=== PATIENT | female | born 1980 | race American Indian/Alaskan Native ===

== ENCOUNTER 2017-07-10 09:16 | Emergency (ER) | payer SELFPAY ==
[2017-07-10 09:39] VITALS: BP 173/114
--- NOTE | 2017-07-10 10:11 | XRay Report ---
ROUTINE CHEST, TWO VIEWS: HISTORY: Cough, right rib pain. The trachea, heart, mediastinal contour, lung ortega and bony thorax are unremarkable. IMPRESSION: Unremarkable chest x-ray.
[2017-07-10 10:22] LABS: Basophils % (Auto) 0.5 % (0.0-1.8); Eosinophils # (Auto) 0.3 K/mm3 (0.0-0.4); Hematocrit 39.9 % (30.3-42.9); Hemoglobin 13.3 gm/dl (10.1-14.3); Lymphocytes # (Auto) 2.4 K/mm3 (1.2-5.4); Lymphocytes % (Auto) 37.7 % (13.4-35.0); Mean Corpuscular HGB Conc 33 % (30-34); Mean Corpuscular Hemoglobin 29 pg (28-32); Mean Corpuscular Volume 87 fl (79-97); Monocytes # (Auto) 0.7 K/mm3 (0.0-0.8); Monocytes % (Auto) 11.7 % (0.0-7.3); Platelet Count 260 K/mm3 (140-440); Red Cell Distribution Width 14.9 % (13.2-15.2)
[2017-07-10 10:39] LABS: BUN/Creatinine Ratio 14; Blood Urea Nitrogen 11 mg/dL (7-17); Calcium 8.9 mg/dL (8.4-10.2); Hemolysis Index 6
--- NOTE | 2017-07-10 13:34 | Emergency Department Report ---
- General Chief Complaint: Upper Respiratory Infection Stated Complaint: COUGH Time Seen by Provider: 07/10/17 13:14 Source: patient Mode of arrival: Ambulatory Limitations: No Limitations - History of Present Illness Initial Comments: Patient is a 36-year-old female who is presenting with cough, congestion for approximately 2 weeks. Patient states she's had a productive cough yellow mucus. Patient states that she has had no nausea vomiting but has had shortness of breath with the cough. Patient has not had any relief with over- the-counter meds. Patient denies any current fever But has had chills. Patient does have a history of smoking. The patient states she has some soreness in the right ribs due to excessive coughing. Patient states this is a 8 out 10 in severity. Patient also states that she is not have her blood pressure medicines several weeks. - Related Data Previous Rx's Medication Instructions Recorded Last Taken Type Acetaminophen/Codeine [Tylenol 1 tab PO Q6H PRN #10 tab 01/21/16 Unknown Rx /Codeine # 3 tab] Amoxicillin [Trimox CAP] 500 mg PO Q8H #30 capsule 01/21/16 Unknown Rx Diclofenac Sodium 75 mg PO BID #20 tablet. 01/21/16 Unknown Rx ALBUTEROL Inhaler [ProAir HFA 2 puff IH QID PRN #1 inhalation 07/10/17 Unknown Rx Inhaler] Atenolol [Tenormin] 25 mg PO DAILY #30 tab 07/10/17 Unknown Rx Azithromycin [Zithromax Z-JIGNA] 250 mg PO DAILY #6 tablet 07/10/17 Unknown Rx HYDROcodone/APAP 5-325 [[place] 1 each PO Q6HR PRN #12 tablet 07/10/17 Unknown Rx 5/325] Lisinopril [Zestril] 10 mg PO DAILY #30 tablet 07/10/17 Unknown Rx predniSONE [Deltasone] 10 mg PO QDAY #5 tab 07/10/17 Unknown Rx Allergies Allergy/AdvReac Type Severity Reaction Status Date / Time No Known Allergies Allergy Verified 01/21/16 02:10 ED Review of Systems ROS: Stated complaint: COUGH Other details as noted in HPI Comment: All other systems reviewed and negative ED Past Medical Hx - Past Medical History Previous Medical History?: Yes Hx Hypertension: Yes (took self off meds) - Surgical History Past Surgical History?: No - Social History Smoking Status: Former Smoker Substance Use Type: Alcohol - Medications Home Medications: Home Medications Medication Instructions Recorded Confirmed Last Taken Type Acetaminophen/Codeine [Tylenol 1 tab PO Q6H PRN #10 tab 01/21/16 Unknown Rx /Codeine # 3 tab] Amoxicillin [Trimox CAP] 500 mg PO Q8H #30 capsule 01/21/16 Unknown Rx Diclofenac Sodium 75 mg PO BID #20 tablet.dr 01/21/16 Unknown Rx ALBUTEROL Inhaler [ProAir HFA 2 puff IH QID PRN #1 inhalation 07/10/17 Unknown Rx Inhaler] Atenolol [Tenormin] 25 mg PO DAILY #30 tab 07/10/17 Unknown Rx Azithromycin [Zithromax Z-JIGNA] 250 mg PO DAILY #6 tablet 07/10/17 Unknown Rx HYDROcodone/APAP 5-325 [[place] 1 each PO Q6HR PRN #12 tablet 07/10/17 Unknown Rx 5/325] Lisinopril [Zestril] 10 mg PO DAILY #30 tablet 07/10/17 Unknown Rx predniSONE [Deltasone] 10 mg PO QDAY #5 tab 07/10/17 Unknown Rx ED Physical Exam - General Limitations: No Limitations General appearance: alert, in no apparent distress - Head Head exam: Present: atraumatic, normocephalic - Eye Eye exam: Present: normal appearance - ENT ENT exam: Present: mucous membranes moist - Neck Neck exam: Present: normal inspection - Respiratory Respiratory exam: Present: normal lung sounds bilaterally. Absent: respiratory distress, wheezes, rales, rhonchi - Cardiovascular Cardiovascular Exam: Present: regular rate, normal rhythm. Absent: systolic murmur, diastolic murmur, rubs, gallop - GI/Abdominal GI/Abdominal exam: Present: soft, normal bowel sounds. Absent: distended, tenderness, guarding, rebound - Extremities Exam Extremities exam: Present: normal inspection - Back Exam Back exam: Present: normal inspection - Neurological Exam Neurological exam: Present: alert, oriented X3 - Psychiatric Psychiatric exam: Present: normal affect, normal mood - Skin Skin exam: Present: warm, dry, intact, normal color. Absent: rash ED Course Vital Signs 07/10/17 09:35 Temperature 99.2 F Pulse Rate 74 Respiratory 18 Rate Blood Pressure 173/114 O2 Sat by Pulse 99 Oximetry ED Medical Decision Making - Lab Data Result diagrams: 07/10/17 10:09 07/10/17 10:11 - Radiology Data Radiology results: report reviewed There is no acute process on the chest x-ray - Medical Decision Making Patient is a 36-year-old female presenting with cough, congestion. X- rays negative for pneumonia. Patient be treated for acute bronchitis. Advised be given because of the patient's smoking status and duration of symptoms. Patient also be restarted on her blood pressure medicines. Critical care attestation.: If time is entered above; I have spent that time in minutes in the direct care of this critically ill patient, excluding procedure time. ED Disposition Clinical Impression: Hypertensive urgency Acute bronchitis Qualifiers: Bronchitis organism: unspecified organism Qualified Code(s): J20.9 - Acute bronchitis, unspecified Disposition: - TO HOME OR SELFCARE Is pt being admited?: No Does the pt Need Aspirin: No Condition: Stable Instructions: Acute Bronchitis (ED), Hypertension (ED) Prescriptions: ALBUTEROL Inhaler [ProAir HFA Inhaler] 2 puff IH QID PRN #1 inhalation PRN Reason: Shortness Of Breath Atenolol [Tenormin] 25 mg PO DAILY #30 tab Azithromycin [Zithromax Z-JIGNA] 250 mg PO DAILY #6 tablet HYDROcodone/APAP 5-325 [[place] 5/325] 1 each PO Q6HR PRN #12 tablet PRN Reason: Pain Lisinopril [Zestril] 10 mg PO DAILY #30 tablet predniSONE [Deltasone] 10 mg PO QDAY #5 tab Referrals: LESLIE MISTRY MD [Staff Physician] - 3-5 Days
== END 2017-07-10 14:15 | disposition home or self-care (01) ==
LOC: ED 09:16
DX: J20.9 Acute bronchitis, unspecified (principal); I10 Essential (primary) hypertension
CPT/HCPCS: 36415; 71046; 80048; 85025